=== PATIENT | male | born 1980 | race Hispanic/Latino ===

== ENCOUNTER → 2017-09-27 | Day surgery (SDC) | payer OTHER ==
[~2017-09-27] MED LIST: BALANCED SALT SOLN (OPTH) 15 ML BTL IO ONE; BUPIVACAINE HC 0.75% PF 10ML VIAL INJ ONE; FENTANYL CITRATE/PF 100MCG/2 ML INJ ONE; LIDOCAINE 2% /EPINEPHRINE 20 ML SDV INJ ONE; LIDOCAINE HCL 1% 30ML-PF VIAL ONE; MIDAZOLAM HCL 2 MG/2 ML VIAL ONE; NEOMYCIN/POLYMYXIN/DEX (OPTH) 3.5 GM TUBE ONE; POVIDONE IODINE 5% (OPTH) 30 ML BTL ONE
--- NOTE | 2017-10-04 18:53 | Operative Report ---
DATE OF PROCEDURE: September 27, 2017 PREOPERATIVE DIAGNOSIS: Very large nasal pterygium, right eye. POSTOPERATIVE DIAGNOSIS: Very large nasal pterygium, right eye. PROCEDURES 1. Pterygium excision, right eye, nasal. 2. Amniotic membrane graft placement, right nasal. 3. Superficial keratectomy, right nasal. 4. Mitomycin 0.25 mg/mL for 60 seconds, right eye, nasal. ANESTHESIA: MAC. COMPLICATIONS: None. PROCEDURE: The patient was taken to the operating room and received tetracaine drops on the right eye. The patient's eye was prepped and draped in the usual sterile ophthalmic way. A lid speculum was placed on the right eye. A 6-0 sterile stay suture was placed at the limbus and the pterygium was localized. It was carefully removed and excised from the cornea and sclerae using 0.12 forceps and Cherie scissors. Once this was removed, it was sent to pathology. Wet field cautery was used to control any bleeding. A bur was used to perform a superficial keratectomy and removed the residual debris from the cornea. Once this was done, a Cottonoid was soaked in mitomycin 0.25 mg/mL and placed at the conjunctivae edge for 60 seconds. After this was done, it was removed. Copious amounts of BSS solution were used to irrigate this off. The amniotic membrane was cut to size and measured 10 x 18 mm. It was secured using fibrin and glue. Excess glue and tissue were removed using 0.12 forceps and Cherie scissors. Once this was done, a patch and Curry shield were placed on the eye with Maxitrol ointment. The patient will be seen in my office. The amniotic membrane graft serial number is [id number]. Job#: [id number]
== END | disposition home or self-care (01) ==
LOC: OR 21:11
PROVIDERS: ATTEND Ophthalmology
DX: H11.051 Peripheral pterygium, progressive, right eye (principal); G47.33 Obstructive sleep apnea (adult) (pediatric); Z89.511 Acquired absence of right leg below knee
CPT/HCPCS: 65426; 88304; J2001; J2250

== ENCOUNTER → 2017-10-06 | Day surgery (SDC) | payer OTHER ==
[~2017-10-06] MED LIST changes: -BUPIVACAINE HC 0.75% PF 10ML VIAL INJ ONE; -LIDOCAINE HCL 1% 30ML-PF VIAL ONE
--- NOTE | 2017-10-11 11:39 | Operative Report ---
DATE OF PROCEDURE: October 06, 2017 PREOPERATIVE DIAGNOSIS: Very large nasal pterygium, left eye. POSTOPERATIVE DIAGNOSIS: Very large nasal pterygium, left eye. PROCEDURES 1. Pterygium excision, left eye, nasal. 2. Amniotic membrane graft placement, left eye, nasal. 3. Superficial keratectomy, left eye, nasal. 4. Mitomycin-C placed on left eye 60 seconds. ANESTHESIA: MAC. COMPLICATIONS: None. PROCEDURE IN DETAIL: The patient was taken to the operating room, where he received tetracaine drops on the left eye. The patient's eye was prepped and draped in the usual sterile ophthalmic way. A lid speculum was placed on the left eye. A 6-0 sterile stay suture was placed at the limbus. The pterygium was localized and very carefully removed away from the sclerae and cornea using 0.12 forceps and Cherie scissors. This was then sent to pathology. Wet-field cautery was used to control any bleeding. A bur was used to perform a superficial keratectomy and remove the residual debris from the cornea. Once this was done, the mitomycin was soaked in a cottonoid and placed on the edge of the conjunctiva. It was 0.25 mg/mL and placed there for 60 seconds. Copious amounts of BSS solution were used to rinse this off after it was removed. The amniotic membrane measured 10 x 18 mm. It was secured using fibrin and thrombin glue. Excess glue and tissue were removed using 0.12 forceps and Cherie scissors. The amniotic membrane graft serial number was [id number]. The patient was taken to the recovery room in good condition and had Maxitrol ointment, a patch and Curry shield placed on the eye. The patient will be seen in my office. Job#: [id number]
== END | disposition home or self-care (01) ==
LOC: OR 10:45
PROVIDERS: ATTEND Ophthalmology
DX: H11.052 Peripheral pterygium, progressive, left eye (principal); F41.9 Anxiety disorder, unspecified; R06.83 Snoring; Z89.511 Acquired absence of right leg below knee
CPT/HCPCS: 65426; 88304; J2001; J2250; 88305